=== PATIENT | female | born 1945 | race Caucasian/White ===

== ENCOUNTER 2018-08-04 05:51 | Inpatient (IN) | payer MEDICARE, SELFPAY ==
[2018-08-04] VITALS (12 sets, daily range): BP systolic 101–174; BP diastolic 59–91; PULSE 74–115; RESP 17–20; TEMP 36.8–39.5; O2SAT 91–96; BMI 36.6; BMI 37.0
--- NOTE | 2018-08-04 05:53 | CT_ITS ---
CT head/brain wo con HISTORY: Facial weakness, drooping, numbness, slurred speech ITS.REASON: cva facial drooping ORDERING PHYSICIAN: Sonido Puente MD PATIENT AGE: 73 years COMPARISON: None TECHNIQUE: Axial images obtained without contrast. Brain and bone windows reviewed. All CT scans at the facility use one or more dose reduction, viz: automated exposure control, ma/kV adjustment per patient size (including targeted exams where dose is matched to indication, i.e. head), or iterative reconstruction technique. FINDINGS: No midline shift, mass effect, intracranial hemorrhage, hydrocephalus, or extra-axial fluid collection is evident. Mild periventricular ischemic gliotic change. The calvarium has an unremarkable appearance. No mastoid effusion. No sinus air-fluid levels.. IMPRESSION: No acute intracranial findings.
--- NOTE | 2018-08-04 05:54 | XR_ITS ---
XR chest portable HISTORY: Weakness, facial drooping ITS.REASON: Stroke alert ORDERING PHYSICIAN: Sonido Puente MD PATIENT AGE: 73 years COMPARISON: None FINDINGS: The cardiomediastinal silhouette and pulmonary vascularity are within normal limits. There is increased density overlying the left lower lobe. While some of this may be due to soft tissue attenuation from the chest wall, underlying pneumonia is also a consideration. Upright PA and lateral chest may be of further value. The right lung is clear. No acute bony abnormalities. IMPRESSION: Possible left lower lobe pneumonia or effusion
--- NOTE | 2018-08-04 05:54 | PC.NURSE ---
Addendum entered by Tena Kaye, EMT 08/04/18 06:43: pt taken to ct at 0548 on ambulance stretcher Original Note: pt Taken straight to CT for stroke protocol
--- NOTE | 2018-08-04 06:30 | HMH.EDNEU ---
ED Disposition Clinical Impression: Elevated INR, Obesity (BMI 30-39.9) UTI (urinary tract infection) Qualifiers: Urinary tract infection type: site unspecified Hematuria presence: without hematuria Qualified Code(s): N39.0 - Urinary tract infection, site not specified Transient cerebral ischemia Qualifiers: Transient cerebral ischemia type: unspecified Qualified Code(s): G45.9 - Transient cerebral ischemic attack, unspecified CAP (community acquired pneumonia) Qualifiers: Laterality: left Lung location: lower lobe of lung Qualified Code(s): J18.1 - Lobar pneumonia, unspecified organism A-fib Qualifiers: Atrial fibrillation type: chronic Qualified Code(s): I48.2 - Chronic atrial fibrillation Disposition: Admitted as Observation Condition on Discharge: Fair Referrals: Provider,Referral, [Primary Care Provider] - - Critical Care Critical Care Time: No Attestation: On 08/04/18, the high probability of a clinically significant, sudden or life threatening deterioration of the following system(s) required my full and direct attention, intervention and personal management. The time I documented below is in addition to time spent performing reported procedures but includes the following listed in this critical care notation. Medical Decision Making - Medical Records Medical records reviewed: Yes: I reviewed the patient's medical records. - Karl Inquiry Pt receiving controlled substance: No Vital Signs: 08/04/18 06:10 08/04/18 06:36 08/04/18 06:58 Temperature 99.9 F H 102.2 F H Temperature Source Oral Rectal Pulse Rate [Right] 115 H 107 H 88 Respiratory Rate 20 20 20 Blood Pressure [Right Arm] 160/77 H 135/67 152/60 H Blood Pressure Mean [Right Arm] 104 89 90 Blood Pressure Source [Right Arm] Blood Pressure Position [Right Arm] 02 Sat by Pulse Oximetry 94 L 92 L Oxygen Delivery Method Room Air Room Air 08/04/18 07:20 08/04/18 08:00 Temperature Temperature Source Pulse Rate [Right] 97 H 88 Respiratory Rate Blood Pressure [Right Arm] 174/74 H 162/82 H Blood Pressure Mean [Right Arm] 107 108 Blood Pressure Source [Right Arm] Automatic Cuff Automatic Cuff Blood Pressure Position [Right Arm] Supine Supine 02 Sat by Pulse Oximetry 94 L 91 L Oxygen Delivery Method Room Air Room Air - Lab Data Lab results reviewed: Yes: I reviewed the patient's lab results. Lab Results 08/04/18 06:25: WBC 19.4 H, RBC 4.61, Hgb 14.0, Hct 43.4, MCV 94.3, MCH 30.3, MCHC 32.2, RDW 13.3, Plt Count 245, MPV 7.7, Neut % (Auto) 89.3 H, Lymph % (Auto) 4.5 L, [place] % (Auto) 5.6, Eos % (Auto) 0.3, Baso % (Auto) 0.3, Neut # (Auto) 17.3 H, Lymph # (Auto) 0.9, [place] # (Auto) 1.1 H, Eos # (Auto) 0.1, Baso # (Auto) 0.1, Total Counted 100, Neutrophils % (Manual) 76, Band Neutrophils % 5.0, Lymphocytes % (Manual) 6 L, Monocytes % (Manual) 9, Basophils % (Manual) 1.0, Metamyelocytes % 3.0 H, Platelet Estimate Normal, RBC Morphology Normal 08/04/18 06:25: PT 51.7 H, INR 5.39 H 08/04/18 06:25: Sodium 139, Potassium 3.7, Chloride 102, Carbon Dioxide 24, Anion Gap 16.7 H, BUN 18, Creatinine 1.14 H, Estimated Creat Clear 64, Estimated GFR 47 L, Est GFR ( Amer) 57 L, Glucose 121 H, Calcium 8.8, Troponin I < 0.02 08/04/18 06:25: Lactate 1.3 08/04/18 06:37: Urine Color Yellow, Urine Appearance Clear, Urine pH 6.0, Ur Specific [place] >= 1.030, Urine Protein 1+, Urine Glucose (UA) Negative, Urine Ketones 1+, Urine Blood 3+, Urine Nitrate Negative, Urine Bilirubin Negative, Urine Urobilinogen 0.2, Ur Leukocyte Esterase Negative, Urine RBC 3-5, Urine WBC 3-5, Ur Squamous Epith Cells Occasional, Urine Bacteria 1+, Fine Granular Casts Occasional, Urine Mucus Trace Result diagrams: 08/04/18 06:25 08/04/18 06:25 Orders (Tests/Meds): ED MEDICATIONS Generic Name Dose Route Start Last Admin Trade Name Freq PRN Reason Stop Dose Admin Sodium Chloride 1,000 mls @ 999 mls/hr 08/04/18 07:45 Sod Chlor 0.9% 1000ml Bag IV
[2018-08-04 06:39] LABS: Basophils # 0.1 K/mm3 (0-0.2); Basophils % 0.3 % (0.1-2.0); Eosinophils # 0.1 K/mm3 (0.0-0.4); Eosinophils % 0.3 % (0.1-12.0); Hematocrit 43.4 % (37.0-47.0); Lymphocytes # 0.9 K/mm3 (0.7-4.5); Lymphocytes % 4.5 % (10-50); Mean Corpuscular HGB Conc 32.2 g/dL (31.8-35.4); Mean Corpuscular Hemoglobin 30.3 pg (27.0-31.2); Mean Corpuscular Volume 94.3 fl (81-99); Mean Platelet Volume 7.7 fl (7.4-10.4); Monocytes # 1.1 K/mm3 (0.1-1.0); Monocytes % 5.6 % (1.7-9.3); Neutrophils # 17.3 K/mm3 (1.8-7.8); Neutrophils % 89.3 % (37.0-80.0); Platelet Count 245 K/mm3 (142-424); Red Blood Count 4.61 M/mm3 (4.20-5.40); Red Cell Distribution Width 13.3 % (11.5-17.5); White Blood Count 19.4 K/mm3 (4.8-10.8)
[2018-08-04 06:42] LABS: MANUAL DIFFERENTIAL MANUAL DIFFERENTIAL (MANUAL DIFF)
[2018-08-04 06:48] LABS: Microscopic, Urine URINE MICROSCOPIC (MICROSCOPIC)
[2018-08-04 06:49] LABS: INR 5.39 (0.9-1.1); Prothrombin Time 51.7 seconds (9.4-11.8)
[2018-08-04 06:50] LABS: Appearance,Urine CLEAR (Clear); Blood, Urine 3+ (Negative); Color,Urine YELLOW (Yellow); Glucose,Urine (UA) Negative (Negative); Ketones,Urine 1+ (Negative); Leukocyte Esterase,Urine Negative (Negative); Nitrate,Urine Negative (Negative); Protein,Urine 1+ (Negative); Specific Gravity, Urine >= 1.030 (1.005-1.030); Urobilinogen,Urine 0.2 EU/dl (0.2)
[2018-08-04 06:53] LABS: Lactic Acid 1.3 mmol/L (0.4-2.0)
[2018-08-04 06:58] LABS: Anion Gap 16.7 mEq/L (5-15); Blood Urea Nitrogen 18 mg/dL (7-18); Calcium 8.8 mg/dL (8.5-10.1); Carbon Dioxide 24 mmol/L (21.0-32.0); Chloride 102 mmol/L (98-107); Creatinine Clearance Estimated 64 mL/min (50-200); Creatinine,Serum 1.14 mg/dL (0.55-1.02); Estimated Glomerular Filt Rate 47 ml/min (>60); GFR (African American) 57 ML/MIN (>60); Glucose 121 mg/dL (74-106); Potassium 3.7 mmoL/L (3.5-5.1); Sodium 139 mmol/L (136-145); Troponin I < 0.02 ng/ml (0.00-0.06)
[2018-08-04 07:11] LABS: Bilirubin,Urine Negative (Negative)
[2018-08-04 07:12] LABS: Fine Granular Casts,Urine Occasional #/lpf (0); Squamous Epithelial Cell,Urine Occasional #/hpf (0-5)
[2018-08-04 07:13] LABS: Bacteria,Urine 1+ /lpf; Mucus,Urine Trace /lpf
[2018-08-04 07:22] LABS: Lymphocytes % 6 % (10-50); Monocytes % 9 % (2-9); Neutrophils % 76 % (42-76); Platelet Estimate Normal; RBC Morphology Normal; Total Cells Counted 100
--- NOTE | 2018-08-04 08:30 | PC.NURSE ---
case management called for admission
--- NOTE | 2018-08-04 08:39 | PC.NURSE ---
Dr. Puente at bedside
--- NOTE | 2018-08-04 09:10 | HMH.PHAVTE ---
[facility] Pharmacy VTE Monitoring - Patient Demographics Admission date: 08/04/18 Report Date: 08/04/18 Time: 09:10 Allergies/Adverse Reactions: Patient Allergies PCN (PENICILLIN) Allergy (Intermediate, Uncoded 02/17/17 14:03) I-HIVES SULFA (SULFONAMIDE) Allergy (Intermediate, Uncoded 02/17/17 14:03) I-RASH Height: 1.57 m Weight: 90.718 kg Patient Problems: Current Active Problems (Updated 08/04/18 @ 08:34 by Sonido Puente MD) UTI (urinary tract infection) (Acute) Transient cerebral ischemia (Acute) CAP (community acquired pneumonia) (Acute) A-fib (Acute) Elevated INR (Acute) Obesity (BMI 30-39.9) (Acute) - VTE Risk Labs: VTE Related Lab Results Hgb 14.0 g/dL (12.2-16.2) 08/04/18 06:25 Hct 43.4 % (37.0-47.0) 08/04/18 06:25 Plt Count 245 K/mm3 (142-424) 08/04/18 06:25 PT 51.7 seconds (9.4-11.8) H 08/04/18 06:25 INR 5.39 (0.9-1.1) H 08/04/18 06:25 BUN 18 mg/dL (7-18) 08/04/18 06:25 Creatinine 1.14 mg/dL (0.55-1.02) H 08/04/18 06:25 Estimated Creat Clear 64 mL/min (50-200) 08/04/18 06:25 - Prophylaxis VTE Prophylaxis Ordered?: Yes Types of VTE Prophylaxis: Pharmacological Pharmacologic Type: Warfarin - VTE Diagnosis Confirmed Treatment or plan recommended: Continue Current Treatment
--- NOTE | 2018-08-04 10:03 | XR_ITS ---
XR chest w decubitus HISTORY: ITS.REASON: pneumonia vs. effusion left lung ORDERING PHYSICIAN: Saroj Napier MD PATIENT AGE: 73 years COMPARISON: 08/04/2018 FINDINGS: PA and lateral views of the chest are performed along with left lateral decubitus exams. The lateral decubitus exam showed no evidence of layering effusion. There is persistent increased density within the superior segment left lower lobe consistent with left-sided pneumonia. There is mild cardiomegaly without failure. The right lung is clear. No acute bony anomalies. IMPRESSION: Pneumonia within the superior segment of the left lower lobe area no layering effusion evident
--- NOTE | 2018-08-04 10:04 | HMH.HP ---
*Admission Date: 08/04/18 *Chief complaint: Weakness *History of present illness: 73-year-old female with 48 hours of onset and progression of diffuse weakness culminating this morning and feeling so weak she was unable to bear weight and/or get out of bed which resulted in a call to EMS. Patient was transported to the emergency department and underwent a stroke work-up. Patient did not have any focal neurologic symptoms but just a generalized complaint of weakness which she has attributed to a urinary tract infection despite the lack of urinary symptoms. During evaluation in the emergency department patient had a fever of 102.2. She confirms that over the last 48 hours she has had subjective fevers and chills. Work-up also revealed an abnormal portable chest x-ray with a reading of a left lower lobe infiltrate versus an effusion. Patient also denies any respiratory symptoms of cough, sputum production, shortness of breath, wheezing, orthopnea. White blood cell count was elevated and decision was made to admit the patient for treatment of UTI and pneumonia while awaiting cultures. Of note patient was in my office and saw 1 of the nurse practitioners on August 02 with the same complaint of weakness which she attributed to a UTI due to past history. At that time patient was found to be tachycardic with heart rate in the 120s. She has known atrial fibrillation. Patient was placed on oral Cardizem at that visit. She was scheduled for follow-up today. At that office visit the patient also lacked classical symptoms of urinary tract infection patient was placed on Macrobid which she was unable to take due to profound nausea and occasional vomiting. [facility] History I have reviewed the patient's past medical history: Yes Medical History: Reports:: Atrial Fibrillation, Hypertension, Valvular Heart Disease Denies:: Cancer, Diabetes Mellitus Type 1, Diabetes Mellitus Type 2, Internal Pacemaker *Have you ever received a pneumonia vaccine?: Yes *Have you received a flu vaccine this season?: Yes Laterality Cases: Bilateral: Tonsillectomy Other Surgeries: No: Pacemaker Amputation: No Fractures: No - *Social History Educational Level: Completed College Alcohol Intake: never *Occupational Status:: retired Housing: house Household Members: spouse *Travel in the last 8 weeks: None - Psychiatric History Expresses thoughts of harming self/others: None Suicide Plan Description: No Plan Family Hx:: Cancer, Coronary Artery Disease, Heart Attack, Hypertension Review of Systems - Review of Systems Review of systems:: pertinent systems reviewed and negative unless documented below - Constitutional Reports anorexia, Reports chills, Reports fatigue, Reports fever(s), Reports lack of energy, Reports malaise, Reports weakness, Denies body ache(s), Denies daytime sleepiness, Denies excessive sweating, Denies increased appetite, Denies night sweats, Denies weight gain, Denies weight loss - Eyes Denies blurry vision - *Cardiovascular Denies chest pain, Denies chest pain at rest, Denies chest pain with activity, Denies leg pain with activity, Denies excessive sweating, Denies shortness of breath, Denies shortness of breath with activity, Denies generalized swelling - *Respiratory Denies change in phlegm color, Denies chest congestion, Denies cough, Denies shortness of breath - *Gastrointestinal Denies abdominal pain, Denies belching - *Genitourinary Denies difficulty urinating, Denies painful urination, Denies side pain, Denies blood in urine - *Neurologic Reports weakness, Denies abnormal hearing, Denies abnormal movements, Denies abnormal speech, Denies behavioral changes, Denies burning sensations, Denies confusion, Denies dizziness, Denies localized weakness, Denies headache(s), Denies tingling/numbness/burning sensations Meds Home Medications Medication Instructions Recorded Confirmed Type Amlodipine Besylate/Benazepril 1 each PO DAILY 08/04/1808/04
--- NOTE | 2018-08-04 10:07 | P.HP_ITS ---
*Admission Date: 08/04/18 *Chief complaint: Weakness *History of present illness: 73-year-old female with 48 hours of onset and progression of diffuse weakness culminating this morning and feeling so weak she was unable to bear weight and/or get out of bed which resulted in a call to EMS. Patient was transported to the emergency department and underwent a stroke work-up. Patient did not have any focal neurologic symptoms but just a generalized complaint of weakness which she has attributed to a urinary tract infection despite the lack of urinary symptoms. During evaluation in the emergency department patient had a fever of 102.2. She confirms that over the last 48 hours she has had subjective fevers and chills. Work-up also revealed an abnormal portable chest x-ray with a reading of a left lower lobe infiltrate versus an effusion. Patient also denies any respiratory symptoms of cough, sputum production, shortness of breath, wheezing, orthopnea. White blood cell count was elevated and decision was made to admit the patient for treatment of UTI and pneumonia while awaiting cultures. Of note patient was in my office and saw 1 of the nurse practitioners on August 02 with the same complaint of weakness which she attributed to a UTI due to past history. At that time patient was found to be tachycardic with heart rate in the 120s. She has known atrial fibrillation. Patient was placed on oral Cardizem at that visit. She was scheduled for follow-up today. At that office visit the patient also lacked classical symptoms of urinary tract infection patient was placed on Macrobid which she was unable to take due to profound nausea and occasional vomiting. [facility] History I have reviewed the patient's past medical history: Yes Medical History: Reports:: Atrial Fibrillation, Hypertension, Valvular Heart Disease Denies:: Cancer, Diabetes Mellitus Type 1, Diabetes Mellitus Type 2, Internal Pacemaker *Have you ever received a pneumonia vaccine?: Yes *Have you received a flu vaccine this season?: Yes Laterality Cases: Bilateral: Tonsillectomy Other Surgeries: No: Pacemaker Amputation: No Fractures: No - *Social History Educational Level: Completed College Alcohol Intake: never *Occupational Status:: retired Housing: house Household Members: spouse *Travel in the last 8 weeks: None - Psychiatric History Expresses thoughts of harming self/others: None Suicide Plan Description: No Plan Family Hx:: Cancer, Coronary Artery Disease, Heart Attack, Hypertension Review of Systems - Review of Systems Review of systems:: pertinent systems reviewed and negative unless documented below - Constitutional Reports anorexia, Reports chills, Reports fatigue, Reports fever(s), Reports lack of energy, Reports malaise, Reports weakness, Denies body ache(s), Denies daytime sleepiness, Denies excessive sweating, Denies increased appetite, Denies night sweats, Denies weight gain, Denies weight loss - Eyes Denies blurry vision - *Cardiovascular Denies chest pain, Denies chest pain at rest, Denies chest pain with activity, Denies leg pain with activity, Denies excessive sweating, Denies shortness of breath, Denies shortness of breath with activity, Denies generalized swelling - *Respiratory Denies change in phlegm color, Denies chest congestion, Denies cough, Denies shortness of breath - *Gastrointestinal Denies abdominal pain, Denies belching - *Genitourinary Denies difficulty urinating, Denies painful urination, Denies side pain, Denies blood in urine - *Neurologic Reports weakness, Denies abnormal hearing, Denies abnormal movements, Denies abnorma
--- NOTE | 2018-08-04 17:37 | PC.NURSE ---
Pt called out to use restroom. Upon entering room and sat pt up on side of the bed, pt became anxious with slurred speech. Pt threw herself back in bed. Finger stick performed and blood sugar 89. Pt has equal strength bilaterally in all exremities with normal sensation. No facial droop noted. Pt able to track and see peripherally bilaterally. Oral temp 103.1, Rectal temp 102.8. Pt given tylenol 650mg for fever. Pt with no difficulty swallowing. Ice packs placed behind neck and in bilat armpits. Dr Puente notified of the above via telephone. No new orders received.
[2018-08-04 17:43] LABS: POC Glucose,Bedside 89 (70-110)
--- NOTE | 2018-08-04 19:15 | PC.NURSE ---
report given to hernan
--- NOTE | 2018-08-04 21:42 | PC.NURSE ---
PT TRIGGERED SEVERE SEPSIS, PT INR ELEVATED SECONDARY TO COUMADIN THERAPY.
[2018-08-05] VITALS (7 sets, daily range): BP systolic 131–154; BP diastolic 60–86; PULSE 89–105; RESP 18–20; TEMP 36.8–37.4; O2SAT 92–94; BMI 37.5
--- NOTE | 2018-08-05 05:03 | PC.NURSE ---
PT AWAKE MOST OF NIGHT. HAVING URINARY INCONTINENCE ISSUE. NO COUGH NOTED. UNABLE TO OBTAIN SPUTUM SPECIMEN. NO COMPLAINTS OF SOB.
--- NOTE | 2018-08-05 07:05 | HMH.ACPN2 ---
Internal Medicine - PN: Subj *Date: 08/05/18 *Time: 07:05 Interval history: Patient has no new complaints this morning. She did not sleep well. Her son later tells me he believes the reason for poor quality sleep was the patient spent most of the night worrying about her who is suffering from Alzheimer's and has a lot of confusion at home. Her son was caring for her at home while she was here in the hospital. Her last documented fever was yesterday evening. She does have mild cough now but continues to deny shortness of breath. Exam Vital signs and Labs for Last 24 Hours: Temp Pulse Resp BP Pulse Ox 98.9 F 105 H 18 139/70 92 L 08/05/18 04:00 08/05/18 04:00 08/05/18 04:00 08/05/18 04:00 08/05/18 04:00 Laboratory Results - last 24 hr 08/04/18 06:25: Total Counted 100, Neutrophils % (Manual) 76, Band Neutrophils % 5.0, Lymphocytes % (Manual) 6 L, Monocytes % (Manual) 9, Basophils % (Manual) 1.0, Metamyelocytes % 3.0 H, Platelet Estimate Normal, RBC Morphology Normal 08/04/18 06:37: Urine Color Yellow, Urine Appearance Clear, Urine pH 6.0, Ur Specific [employer] >= 1.030, Urine Protein 1+, Urine Glucose (UA) Negative, Urine Ketones 1+, Urine Blood 3+, Urine Nitrate Negative, Urine Bilirubin Negative, Urine Urobilinogen 0.2, Ur Leukocyte Esterase Negative, Urine RBC 3-5, Urine WBC 3-5, Ur Squamous Epith Cells Occasional, Urine Bacteria 1+, Fine Granular Casts Occasional, Urine Mucus Trace 08/04/18 17:19: POC Glucose 89 I & O for Last 24 hours: Intake & Output 08/02/18 08/03/18 08/04/18 08/05/18 11:59 11:59 11:59 11:59 Intake Total 2600 / 2600 Output Total 100 / 100 350 / 350 Balance -100 / -100 2250 / 2250 Weight 202 lb 5 oz 205 lb Narrative: Patient is supine in bed and exhibits mild increase in respiratory rate. She is warm to the touch. Heart has an irregularly irregular rate and rhythm. Lungs have good aeration anteriorly with rales heard in the left lower lung. Extremities are warm to the touch Assessment and Plan (1) CAP (community acquired pneumonia) Current visit: Yes Status: Acute Qualifiers: Laterality: left Lung location: lower lobe of lung Qualified Code(s): J18.1 - Lobar pneumonia, unspecified organism Category: Medical Code(s): J18.9 - Pneumonia, unspecified organism (2) UTI (urinary tract infection) Current visit: Yes Status: Acute Qualifiers: Urinary tract infection type: site unspecified Hematuria presence: without hematuria Qualified Code(s): N39.0 - Urinary tract infection, site not specified Category: Medical Code(s): N39.0 - Urinary tract infection, site not specified (3) A-fib Current visit: Yes Status: Acute Qualifiers: Atrial fibrillation type: chronic Qualified Code(s): I48.2 - Chronic atrial fibrillation Category: Medical Code(s): I48.91 - Unspecified atrial fibrillation (4) Elevated INR Current visit: Yes Status: Acute Category: Medical Code(s): R79.1 - Abnormal coagulation profile (5) Obesity (BMI 30-39.9) Current visit: Yes Status: Acute Category: Medical Code(s): E66.9 - Obesity, unspecified - Assessment and plan all Dx Assessment and Plan for all problems:: 1. Continue Rocephin and azithromycin for treatment of community-acquired pneumonia 2. Await CBC this morning
[2018-08-05 07:09] LABS: Basophils % 0.1 % (0.1-2.0); Hematocrit 38.3 % (37.0-47.0); Hemoglobin 12.7 g/dL (12.2-16.2); Lymphocytes # 0.9 K/mm3 (0.7-4.5); Lymphocytes % 5.7 % (10-50); Mean Corpuscular HGB Conc 33.3 g/dL (31.8-35.4); Mean Corpuscular Hemoglobin 29.4 pg (27.0-31.2); Mean Corpuscular Volume 88.3 fl (81-99); Mean Platelet Volume 8.4 fl (7.4-10.4); Monocytes # 1.2 K/mm3 (0.1-1.0); Neutrophils # 13.4 K/mm3 (1.8-7.8); Neutrophils % 86.2 % (37.0-80.0); Platelet Count 217 K/mm3 (142-424); Red Blood Count 4.34 M/mm3 (4.20-5.40); Red Cell Distribution Width 13.1 % (11.5-17.5); White Blood Count 15.6 K/mm3 (4.8-10.8)
[2018-08-05 07:11] LABS: MANUAL DIFFERENTIAL MANUAL DIFFERENTIAL (MANUAL DIFF)
[2018-08-05 07:31] LABS: Prothrombin Time 44.2 seconds (9.4-11.8)
[2018-08-05 07:40] LABS: INR 4.57 (0.9-1.1)
[2018-08-05 07:41] LABS: Anion Gap 14.9 mEq/L (5-15); Blood Urea Nitrogen 14 mg/dL (7-18); Carbon Dioxide 23 mmol/L (21.0-32.0); Chloride 109 mmol/L (98-107); Creatinine Clearance Estimated 75 mL/min (50-200); Creatinine,Serum 0.83 mg/dL (0.55-1.02); Estimated Glomerular Filt Rate 68 ml/min (>60); GFR (African American) 82 ML/MIN (>60); Glucose 102 mg/dL (74-106); Potassium 3.9 mmoL/L (3.5-5.1); Sodium 143 mmol/L (136-145)
[2018-08-05 07:54] LABS: Calcium 7.9 mg/dL (8.5-10.1)
[2018-08-05 12:28] LABS: Lymphocytes % 5 % (10-50); Monocytes % 7 % (2-9); Neutrophils % 86 % (42-76); Platelet Estimate Normal; RBC Morphology Normal; Total Cells Counted 100
--- NOTE | 2018-08-05 20:44 | PC.NURSE ---
PT TRIGGERED SEVERE SEPSIS SECONDARY TO ELEVATED INR, PT ON COUMADIN THERAPY.
[2018-08-06 04:00] VITALS: BP 135/65; PULSE 94; RESP 16; TEMP 36.5; O2SAT 94
--- NOTE | 2018-08-06 04:28 | PC.NURSE ---
PT SLEPT TIL AROUND 0130. UP TO BATHROOM WITH ONE ASSIST. REQUESTED SLEEP AID-BENADRYL 25MG PO GIVEN PER ORDER. PT VOIDING WITHOUT DIFFICULTY. PT STATES SHE IS NOT EATING WELL. CONTINUES ON 2L PER NC. UNABLE TO OBTAIN SPUTUM-REPORTED TO RESPIRATORY.
[2018-08-06 05:17] VITALS: BMI 37.0
--- NOTE | 2018-08-06 07:00 | CA_ITS ---
PROCEDURE: 2-D M-mode and color Doppler study INDICATIONS FOR THE TEST: Chest pain COPD Heart Murmur Tobacco Smoking Palpitations Fatigue Syncope Edema HypertensionXDiabetes Mellitus Rheumatic Fever SOBXDOEXObesityXHyperlipidemia Family History HD Additional History CHRONIC AF,UTI,WEAKNESS PATIENT INFORMATION HEIGHT: 62 WEIGHT:205 GENDER: Female B/P:110/70 2-D/M-MODE INTERPRETATION: 2-D MEASUREMENTS OBSERVED VALUES IN CMS Right Ventricular Dimension (RVDd) 1.9 Interventricular Septum (Thickness)(IVsd) 1.2 Left Ventricular Internal Dimensions(LVIDd) 4.7 Left Ventricular Posterior Wall (Thickness)(LVPWd) 1.0 Aortic Root 3.3 Aortic Cusp Separation 1.7 Left Atrial Dimensions (LAD) 3.7 2D 1. Left atrium is moderately enlarged, left ventricle is normal size, mild concentric left ventricular hypertrophy, visually estimated ejection fraction of 55% with no regional wall motion abnormality. 2. The right atrium is moderately enlarged, right ventricle is normal size and contractility. 3. The aortic valve is minimally thickened and fibrosed. 4. The mitral and tricuspid valve leaflets are minimally thickened. 5. The pulmonic valve is poorly visualized. 6. No significant pericardial effusion noted. DOPPLER INTERROGATION: Doppler interrogation of the aortic, mitral and tricuspid valvular presence of mild mitral and tricuspid regurgitation, calculated right ventricular systolic pressure 58 mmHg represents moderate pulmonary hypertension, inferior vena cava is normal size with normal inspiratory collapse. Diastolic parameters are inconclusive. CONCLUSION: 1. Moderate biatrial enlargement, normal left ventricular size, mild concentric left ventricular hypertrophy, visually estimated ejection fraction 55% with no regional wall motion abnormality, diastolic parameters are inconclusive. 2. Mild mitral and tricuspid regurgitation, calculated right ventricular systolic pressure is 58 mmHg that represents moderate pulmonary hypertension. Inferior vena cava is normal size with normal inspiratory collapse. 3. No significant pericardial effusion noted.
[2018-08-06 07:14] LABS: Anion Gap 14.1 mEq/L (5-15); Basophils % 0.1 % (0.1-2.0); Blood Urea Nitrogen 12 mg/dL (7-18); Calcium 8.3 mg/dL (8.5-10.1); Carbon Dioxide 27 mmol/L (21.0-32.0); Chloride 106 mmol/L (98-107); Creatinine Clearance Estimated 74 mL/min (50-200); Creatinine,Serum 0.89 mg/dL (0.55-1.02); Eosinophils # 0.1 K/mm3 (0.0-0.4); Eosinophils % 0.4 % (0.1-12.0); Estimated Glomerular Filt Rate 62 ml/min (>60); GFR (African American) 75 ML/MIN (>60); Glucose 97 mg/dL (74-106); Hematocrit 36.5 % (37.0-47.0); Lymphocytes # 1.3 K/mm3 (0.7-4.5); Lymphocytes % 9.4 % (10-50); Mean Corpuscular HGB Conc 32.8 g/dL (31.8-35.4); Mean Corpuscular Hemoglobin 28.7 pg (27.0-31.2); Mean Corpuscular Volume 87.4 fl (81-99); Mean Platelet Volume 8.1 fl (7.4-10.4); Monocytes # 1.1 K/mm3 (0.1-1.0); Monocytes % 8.3 % (1.7-9.3); Neutrophils % 81.9 % (37.0-80.0); Platelet Count 230 K/mm3 (142-424); Potassium 3.1 mmoL/L (3.5-5.1); Red Blood Count 4.18 M/mm3 (4.20-5.40); Red Cell Distribution Width 13.1 % (11.5-17.5); Sodium 144 mmol/L (136-145); White Blood Count 13.4 K/mm3 (4.8-10.8)
--- NOTE | 2018-08-06 07:22 | HMH.ACPN2 ---
Internal Medicine - PN: Subj *Date: 08/06/18 *Time: 07:22 Interval history: Patient has no complaints this morning. She just completed an echocardiogram. Yesterday afternoon around 4 PM patient was acting oddly per nursing staff and was found to be hypoxic with an O2 sat of 83% on room air. Oxygen at a rate of 2 L/min was applied via nasal cannula. Patient however continues to deny shortness of breath. Movement has been minimal since hospitalization and while the patient was encouraged to ambulate short distances and sit in the chair yesterday she did not do that until yesterday evening. Exam Vital signs and Labs for Last 24 Hours: Temp Pulse Resp BP Pulse Ox 97.7 F 94 H 16 135/65 94 L 08/06/18 04:00 08/06/18 04:00 08/06/18 04:00 08/06/18 04:00 08/06/18 04:00 Laboratory Results - last 24 hr 08/05/18 06:27: Total Counted 100, Neutrophils % (Manual) 86 H, Band Neutrophils % 2.0, Lymphocytes % (Manual) 5 L, Monocytes % (Manual) 7, Platelet Estimate Normal, RBC Morphology Normal 08/05/18 06:27: PT 44.2 H, INR 4.57 H 08/05/18 06:27: Sodium 143, Potassium 3.9, Chloride 109 H, Carbon Dioxide 23, Anion Gap 14.9, BUN 14, Creatinine 0.83 D, Estimated Creat Clear 75, Estimated GFR 68, Est GFR ( Amer) 82 D, Glucose 102, Calcium 7.9 L D 08/06/18 06:15: WBC 13.4 H, RBC 4.18 L, Hgb 12.0 L, Hct 36.5 L, MCV 87.4, MCH 28.7, MCHC 32.8, RDW 13.1, Plt Count 230, MPV 8.1, Neut % (Auto) 81.9 H, Lymph % (Auto) 9.4 L, [place] % (Auto) 8.3, Eos % (Auto) 0.4, Baso % (Auto) 0.1, Neut # (Auto) 11.0 H, Lymph # (Auto) 1.3, [place] # (Auto) 1.1 H, Eos # (Auto) 0.1, Baso # (Auto) 0.0 08/06/18 06:15: Sodium 144, Potassium 3.1 L D, Chloride 106, Carbon Dioxide 27, Anion Gap 14.1, BUN 12, Creatinine 0.89, Estimated Creat Clear 74, Estimated GFR 62, Est GFR ( Amer) 75, Glucose 97, Calcium 8.3 L I & O for Last 24 hours: Intake & Output 08/03/18 08/04/18 08/05/18 08/06/18 11:59 11:59 11:59 11:59 Intake Total 360 / 360 2600 / 2600 2966 / 2966 Output Total 100 / 100 350 / 350 200 / 200 Balance 260 / 260 2250 / 2250 2766 / 2766 Weight 202 lb 5 oz 205 lb 202 lb 4 oz Microbiology Reports for the Last 24 Hours: Microbiology 08/04/18 06:25 Blood Blood Culture - Preliminary NO GROWTH AFTER 48 HOURS 08/04/18 06:25 Blood Blood Culture - Preliminary NO GROWTH AFTER 48 HOURS 08/04/18 06:38 Urine,Catheterized Urine Culture - Preliminary NO GROWTH AFTER 24 HOURS Narrative: Patient is laying flat in bed. She seems more lucid today than yesterday despite claiming that she recalls all the events of yesterday. Heart has a regular rate and rhythm. Lung exam reveals diminished breath sounds on the left but rales are less audible in the base. Assessment and Plan (1) CAP (community acquired pneumonia) Current visit: Yes Status: Acute Qualifiers: Laterality: left Lung location: lower lobe of lung Qualified Code(s): J18.1 - Lobar pneumonia, unspecified organism Category: Medical Code(s): J18.9 - Pneumonia, unspecified organism (2) UTI (urinary tract infection) Current visit: Yes Status: Acute Qualifiers: Urinary tract infection type: site unspecified Hematuria presence: without hematuria Qualified Code(s): N39.0 - Urinary tract infection, site not specified Category: Medical Code(s): N39.0 - Urinary tract infection, site not specified (3) A-fib Current visit: Yes Status: Acute Qualifiers: Atrial fibrillation type: chronic Qualified Code(s): I48.2 - Chronic atrial fibrillation Category: Medical Code(s): I48.91 - Unspecified atrial fibrillation (4) Elevated INR Current visit: Yes Status: Acute Category: Medical Code(s): R79.1 - Abnormal coagulation profile (5) Obesity (BMI 30-39.9) Current visit: Yes Status: Acute Category: Medical Code(s): E66.9 - Obesity, unspecified
--- NOTE | 2018-08-06 07:26 | P.PN_ITS ---
Internal Medicine - PN: Subj *Date: 08/06/18 *Time: 07:22 Interval history: Patient has no complaints this morning. She just completed an echocardiogram. Yesterday afternoon around 4 PM patient was acting oddly per nursing staff and was found to be hypoxic with an O2 sat of 83% on room air. Oxygen at a rate of 2 L/min was applied via nasal cannula. Patient however continues to deny shortness of breath. Movement has been minimal since hospitalization and while the patient was encouraged to ambulate short distances and sit in the chair yesterday she did not do that until yesterday evening. Exam Vital signs and Labs for Last 24 Hours: Temp Pulse Resp BP Pulse Ox 97.7 F 94 H 16 135/65 94 L 08/06/18 04:00 08/06/18 04:00 08/06/18 04:00 08/06/18 04:00 08/06/18 04:00 Laboratory Results - last 24 hr 08/05/18 06:27: Total Counted 100, Neutrophils % (Manual) 86 H, Band Neutrophils % 2.0, Lymphocytes % (Manual) 5 L, Monocytes % (Manual) 7, Platelet Estimate Normal, RBC Morphology Normal 08/05/18 06:27: PT 44.2 H, INR 4.57 H 08/05/18 06:27: Sodium 143, Potassium 3.9, Chloride 109 H, Carbon Dioxide 23, Anion Gap 14.9, BUN 14, Creatinine 0.83 D, Estimated Creat Clear 75, Estimated GFR 68, Est GFR ( Amer) 82 D, Glucose 102, Calcium 7.9 L D 08/06/18 06:15: WBC 13.4 H, RBC 4.18 L, Hgb 12.0 L, Hct 36.5 L, MCV 87.4, MCH 28.7, MCHC 32.8, RDW 13.1, Plt Count 230, MPV 8.1, Neut % (Auto) 81.9 H, Lymph % (Auto) 9.4 L, [place] % (Auto) 8.3, Eos % (Auto) 0.4, Baso % (Auto) 0.1, Neut # (Auto) 11.0 H, Lymph # (Auto) 1.3, [place] # (Auto) 1.1 H, Eos # (Auto) 0.1, Baso # (Auto) 0.0 08/06/18 06:15: Sodium 144, Potassium 3.1 L D, Chloride 106, Carbon Dioxide 27, Anion Gap 14.1, BUN 12, Creatinine 0.89, Estimated Creat Clear 74, Estimated GFR 62, Est GFR ( Amer) 75, Glucose 97, Calcium 8.3 L I & O for Last 24 hours: Intake & Output 08/03/18 08/04/18 08/05/18 08/06/18 11:59 11:59 11:59 11:59 Intake Total 360 / 360 2600 / 2600 2966 / 2966 Output Total 100 / 100 350 / 350 200 / 200 Balance 260 / 260 2250 / 2250 2766 / 2766 Weight 202 lb 5 oz 205 lb 202 lb 4 oz Microbiology Reports for the Last 24 Hours: Microbiology 08/04/18 06:25 Blood Blood Culture - Preliminary NO GROWTH AFTER 48 HOURS 08/04/18 06:25 Blood Blood Culture - Preliminary NO GROWTH AFTER 48 HOURS 08/04/18 06:38 Urine,Catheterized Urine Culture - Preliminary NO GROWTH AFTER 24 HOURS Narrative: Patient is laying flat in bed. She seems more lucid today than yesterday despite claiming that she recalls all the events of yesterday. Heart has a regular rate and rhythm. Lung exam reveals diminished breath sounds on the left but rales are less audible in the base. Assessment and Plan (1) CAP (community acquired pneumonia) Current visit: Yes Status: Acute Qualifiers: Laterality: left Lung location: lower lobe of lung Qualified Code(s): J18.1 - Lobar pneumonia, unspecified organism Category: Medical Code(s): J18.9 - Pneumonia, unspecified organism (2) UTI (urinary tract infection) Current visit: Yes Status: Acute Qualifiers: Urinary tract infection type: site unspecified Hematuria presence: without hematuria Qualified Code(s): N39.0 - Urinary tract infection, site not specified Category: Medical Code(s): N39.0 - Urinary tract inf
[2018-08-06 08:00] VITALS: BP 135/78; PULSE 111; RESP 18; TEMP 37.4; O2SAT 95
--- NOTE | 2018-08-06 12:25 | HMH.PTEV ---
Physical Therapy Evaluation Rehab PT IP Evaluation Start: 08/05/18 16:14 Freq: .once Status: Active Protocol: Document 08/06/18 11:20 PHORNE (Rec: 08/06/18 12:25 PHORNE [id number]) Subjective/History History History 73 yowf adm to [facility] with weakness and CAP. Subjective Subjective Pt currently reports feeling better and wants to increase mobility. Rehab PT IP Eval Objective Appearance Patient Behavior Appropriate Patient Orientation Person,Place,Time Difficulty following instructions none Speech Pattern Clear Ambulation Patient Able to Ambulate Yes Ambulation Observation IP General Gait Pattern Observation Wide Based Gait Ambulation Distance (feet) 50 Ambulation Assistive Device Rolling Walker Balance Ability to Arise Able, uses arms to help Sitting Balance Steady, safe Standing Balance Steady, wide stance Dynamic Sitting Balance Ability Good Dynamic Standing Balance Ability Good Transfers Bed Transfer Ability Supervision/Stand by Chair Transfer Ability Contact Guard/Hand Hold Sit to Stand Bed Transfer Ability Contact Guard/Hand Hold Sit to Stand Chair Transfer Ability Contact Guard/Hand Hold ROM All Extremities PT ROM Status WFL MMT All Extremities PT MMT WFL Rehab PT IP prob,goals,plan Problems Date of Evaluation: 08/06/18 PT IP Problems Bed Mobility,Transfers,Gait Rehab Potential Rehab Potential Good Plan PT Intervention Plan Bed Mobility,Transfers,Gait, Therapeutic Exercise PT Plan Frequency BID Duration LOS Discharge Goals Bed Transfer Ability Supervision/Stand by Sit to Stand Chair Transfer Ability Supervision/Stand by Ambulation Assistive Device Straight Cane Ambulation Distance (feet) 75 Discharge Plan PT Discharge Plan Pt is appropriate to return home once medically stable, will need to increase endurance as tolerated. G -code Required Yes Eval Complexity Eval Charge Codes 42473 - Moderate Complexity G Codes PT Current Status Mobility PT Current Status Modifier CJ-At least 20% but less than 40% impaired, limited or restricted PT Goal Status Mobility PT Goal Status Modifer CJ-At least 20% but less than 40% impaired, limited or re
--- NOTE | 2018-08-06 13:35 | PC.NURSE ---
report given to kiran
--- NOTE | 2018-08-06 15:10 | SW/DCPLANNER ---
RECEIVED REFERRAL FOR HOME HEALTH FOR THIS PATIENT....PATIENT IS DISCHARGING HOME [facility] AND WISHES TO USE [facility].. I HAVE SENT REFERRAL AND MADE CONTACT WITH BETSY TO LET ME KNOW ONCE PATIENT IS SET UP... PATIENT MAY ALSO NEED HOME 02...WILL MONITOR HER SATS AND IF SHE DROPS TO WHERE SHE NEEDS OXYGEN, IT WILL BE SET UP PRIOR TO DISCHARGE...
--- NOTE | 2018-08-06 15:22 | PC.NURSE ---
CHECKED PATIENT'S OXYGEN AT 1000 IT WAS 91% ON 2L, REMOVED OXYGEN FOR 30 MINUTES AND IT DROOPED TO 84%, REAPPLIED 2L OF 02. CHECKED AGAIN AT 1430 IT WAS 95% ON 2L, REMOVED OXYGEN FOR 30 MINUTES AND IT DROPPED TO 87%, REAPPLIED 2L OF 02.
[2018-08-06 16:00] VITALS: BP 161/73; PULSE 102; RESP 18; TEMP 37.6; O2SAT 94
--- NOTE | 2018-08-06 16:32 | PC.NURSE ---
ice and trash done, pt up in chair awake
--- NOTE | 2018-08-06 18:14 | PC.NURSE ---
PATIENT HAS BEEN OUT OF BED TODAY, SITTING UP IN CHAIR, AMBULATING IN ROOM WITH USE OF ROLLING WALKER. 02 STATS REMAIN LOW, CHECKED TWICE TODAY WITHOUT 02 FOR 30 MINUTES EACH TIME AND SHE DROPPED INTO THE 80'S. SHE IS SALINE LOCKED . PATIENT RESTING IN BED AT THIS TIME. VSS, CALL TARIQ IN REACH, BED IN LOWEST POSITION, NO DISTRESS NOTED, DENIES ANY NEEDS. WILL CONTINUE TO MONITOR. PLANS ARE FOR PATIENT TO BE DISCHARGED TOMORROW. DISCHARGE INFORMATION AT IT [facility] FOR HOME OXYGEN AND HOME HEALTH, WILL PASS ON TO ONCOMING NURSE AT SHIFT CHANGE.
[2018-08-06 19:42] VITALS: BP 172/90; PULSE 103; RESP 18; TEMP 37.5; O2SAT 87
[2018-08-07 04:00] VITALS: BP 160/88; PULSE 87; RESP 30; TEMP 36.8; O2SAT 89
--- NOTE | 2018-08-07 04:11 | PC.NURSE ---
A&OX4. INTERMITTENT NONPRODUCTIVE COUGH NOTED WITH COURSE CRACKLES T/O BILAT LUNGS. AT BEGINNING OF SHIFT PT. RA 87%; O2 SAT 89% ON 1.5L NC; O2 SAT 90% ON 2L NC. PT. HAS NOT C/O SOB, PAIN, DIZZINESS, N/V/D. IV PATENT WHEN FLUSHED SHOWING NO S/S OF INFILTRATION. PT. CURRENTLY RESTING IN BED WITH EYES CLOSED AT THIS TIME. VSS. WILL CONTINUE TO MONITOR.
[2018-08-07 05:16] VITALS: BMI 36.8
[2018-08-07 07:10] LABS: Basophils % 0.2 % (0.1-2.0); Eosinophils # 0.1 K/mm3 (0.0-0.4); Eosinophils % 0.4 % (0.1-12.0); Hematocrit 36.3 % (37.0-47.0); Hemoglobin 11.9 g/dL (12.2-16.2); Lymphocytes # 1.3 K/mm3 (0.7-4.5); Lymphocytes % 8.7 % (10-50); Mean Corpuscular HGB Conc 32.8 g/dL (31.8-35.4); Mean Corpuscular Volume 88.4 fl (81-99); Mean Platelet Volume 7.6 fl (7.4-10.4); Monocytes # 1.2 K/mm3 (0.1-1.0); Neutrophils # 12.1 K/mm3 (1.8-7.8); Neutrophils % 82.7 % (37.0-80.0); Platelet Count 309 K/mm3 (142-424); Red Blood Count 4.11 M/mm3 (4.20-5.40); Red Cell Distribution Width 13.3 % (11.5-17.5); White Blood Count 14.6 K/mm3 (4.8-10.8)
--- NOTE | 2018-08-07 07:29 | PC.NURSE ---
REPORT GIVEN TO Maria Luisa DUNBAR
[2018-08-07 08:00] VITALS: BP 162/77; PULSE 96; RESP 22; TEMP 37.9; O2SAT 93
--- NOTE | 2018-08-07 09:26 | XR_ITS ---
XR chest 2V HISTORY: Pneumonia on left. Fatigue. Weakness. ITS.REASON: pneumonia progress ORDERING PHYSICIAN: Saroj Napier MD PATIENT AGE: 73 years Technique: PA and lateral chest COMPARISON: PA & lateral view chest 12:30 & 08/04/2018 portable chest 6:00 AM FINDINGS: There is been progression of airspace disease most evident at the left lung with now minimal infiltrate at right base. LEFT LUNG. Most prominent new area of density is seen at the left lung base and obscures left hemidiaphragm. (Which was previously sharp and clear) moderately dense infiltrate & atelectasis & consolidation left infrahilar region and extending into the left lower lobe now evident during the left hemidiaphragm. Also progression of small left pleural effusion adding to the density here at left base.-Blunting at left CP angle and posterior sulcus more evident today At left midlung there is hazy infiltrate seen involving segment of left lower lobe. This was evident previous CXR appears stable to slightly more pronounced on today's study on both views. RIGHT LUNG. Minimal streaky infiltrate now evident at right infrahilar region towards RLL and possibly involving RML. . Suspect is a small right pleural effusion as well as slight blunting right CP angle. Cardiomegaly. Mild increased prominence of pulmonary vascularity suggesting mild vascular congestion. Possible minor CHF or fluid overload. Progression of small bilateral pleural effusions withIncreased fluid along fissures bilaterally Nimo and mediastinal structures otherwise appears satisfactory Chest wall and T-spine stable IMPRESSION:...... 1. Progression of airspace disease bilaterally.-With findings most evident at Left Lung. 2. Most notable is new since/progressive infiltrate & atelectasis throughout Left Lower Lobe-most pronounced at left lung base,. Features now obscuring left hemidiaphragm. Small left pleural effusion also contributes to this left basilar density.. The Previously noted infiltrate limited to the superior segment of the LLL is again noted-with only perhaps slight progression since 08/04/2018 3. Right Lung.: Minimal wispy infiltrate right infrahilar region towards right base now also evident 4. Increase prominence of pulmonary vascularity suggesting mild vascular congestion . Question possible mild Fluid overloadvsMinor CHF. Correlation required. Consider BMP ... Slight progression of small pleural effusions bilaterally also noted. Left more than right
--- NOTE | 2018-08-07 09:28 | HMH.ACPN2 ---
Internal Medicine - PN: Subj *Date: 08/07/18 *Time: 09:29 Interval history: Patient reports feeling exhausted this morning. She actually had a good day yesterday afternoon and was sitting up in the chair and felt the best she had felt in the last week. She states about 4:30 in the afternoon her condition abruptly changed and she felt extremely fatigued. She was able to sleep some overnight. Her appetite is improved. She continues to deny significant cough or shortness of breath. What cough she does have has remained nonproductive. She did have a low-grade fever overnight. Exam Vital signs and Labs for Last 24 Hours: Temp Pulse Resp BP Pulse Ox 100.3 F H 96 H 22 162/77 H 93 L 08/07/18 08:00 08/07/18 08:00 08/07/18 08:00 08/07/18 08:00 08/07/18 08:00 Laboratory Results - last 24 hr 08/07/18 06:15: WBC 14.6 H, RBC 4.11 L, Hgb 11.9 L, Hct 36.3 L, MCV 88.4, MCH 29.0, MCHC 32.8, RDW 13.3, Plt Count 309 D, MPV 7.6, Neut % (Auto) 82.7 H, Lymph % (Auto) 8.7 L, [place] % (Auto) 8.0, Eos % (Auto) 0.4, Baso % (Auto) 0.2, Neut # (Auto) 12.1 H, Lymph # (Auto) 1.3, [place] # (Auto) 1.2 H, Eos # (Auto) 0.1, Baso # (Auto) 0.0 I & O for Last 24 hours: Intake & Output 08/04/18 08/05/18 08/06/18 08/07/18 11:59 11:59 11:59 11:59 Intake Total 360 / 360 2600 / 2600 3446 / 3446 1200 / 1200 Output Total 100 / 100 350 / 350 200 / 200 Balance 260 / 260 2250 / 2250 3246 / 3246 1200 / 1200 Weight 202 lb 5 oz 205 lb 202 lb 4 oz 201 lb 7 oz Microbiology Reports for the Last 24 Hours: Microbiology 08/04/18 06:38 Urine,Catheterized Urine Culture - Final NO GROWTH AFTER 48 HOURS 08/04/18 06:25 Blood Blood Culture - Preliminary NO GROWTH AFTER 48 HOURS 08/04/18 06:25 Blood Blood Culture - Preliminary NO GROWTH AFTER 48 HOURS Narrative: She looks depressed this morning. Lung exam reveals crackles in the left base and lower mid lung posteriorly. Right lung is clear. Heart has a regular rate and rhythm Assessment and Plan (1) CAP (community acquired pneumonia) Current visit: Yes Status: Acute Qualifiers: Laterality: left Lung location: lower lobe of lung Qualified Code(s): J18.1 - Lobar pneumonia, unspecified organism Category: Medical Code(s): J18.9 - Pneumonia, unspecified organism Repeat chest x-ray today due to low-grade fever and mild increase in white blood cell count. Patient may require antibiotic adjustment, CT scan of the chest (2) UTI (urinary tract infection) Current visit: Yes Status: Ruled-out Qualifiers: Urinary tract infection type: site unspecified Hematuria presence: without hematuria Qualified Code(s): N39.0 - Urinary tract infection, site not specified Category: Medical Code(s): N39.0 - Urinary tract infection, site not specified (3) A-fib Current visit: Yes Status: Acute Qualifiers: Atrial fibrillation type: chronic Qualified Code(s): I48.2 - Chronic atrial fibrillation Category: Medical Code(s): I48.91 - Unspecified atrial fibrillation Increase extended release diltiazem to 240 mg daily. Repeat INR this morning and daily (4) Elevated INR Current visit: Yes Status: Acute Category: Medical Code(s): R79.1 - Abnormal coagulation profile (5) Obesity (BMI 30-39.9) Current visit: Yes Status: Acute Category: Medical Code(s): E66.9 - Obesity, unspecified
[2018-08-07 10:00] VITALS: TEMP 37.4
[2018-08-07 11:27] LABS: Prothrombin Time 24.9 seconds (9.4-11.8)
--- NOTE | 2018-08-07 13:18 | P.PN_ITS ---
Internal Medicine - PN: Subj *Date: 08/07/18 *Time: 13:17 Exam Vital signs and Labs for Last 24 Hours: Temp Pulse Resp BP Pulse Ox 100.3 F H 96 H 22 162/77 H 93 L 08/07/18 08:00 08/07/18 08:00 08/07/18 08:00 08/07/18 08:00 08/07/18 08:00 Laboratory Results - last 24 hr 08/07/18 06:15: WBC 14.6 H, RBC 4.11 L, Hgb 11.9 L, Hct 36.3 L, MCV 88.4, MCH 29.0, MCHC 32.8, RDW 13.3, Plt Count 309 D, MPV 7.6, Neut % (Auto) 82.7 H, Lymph % (Auto) 8.7 L, [place] % (Auto) 8.0, Eos % (Auto) 0.4, Baso % (Auto) 0.2, Neut # (Auto) 12.1 H, Lymph # (Auto) 1.3, [place] # (Auto) 1.2 H, Eos # (Auto) 0.1, Baso # (Auto) 0.0 08/07/18 10:55: PT 24.9 H, INR 2.50 H I & O for Last 24 hours: Intake & Output 08/04/18 08/05/18 08/06/18 08/07/18 23:59 23:59 23:59 23:59 Intake Total 2106 / 2106 2320 / 2320 2820 / 2820 360 / 360 Output Total 100 / 100 550 / 550 Balance 2005 1770 / 1770 2820 / 2820 360 / 360 Weight 91.767 kg 92.986 kg 91.739 kg 91.371 kg Assessment and Plan (1) CAP (community acquired pneumonia) Current visit: Yes Status: Acute Qualifiers: Laterality: left Lung location: lower lobe of lung Qualified Code(s): J18.1 - Lobar pneumonia, unspecified organism Category: Medical Code(s): J18.9 - Pneumonia, unspecified organism (2) UTI (urinary tract infection) Current visit: Yes Status: Ruled-out Qualifiers: Urinary tract infection type: site unspecified Hematuria presence: without hematuria Qualified Code(s): N39.0 - Urinary tract infection, site not specified Category: Medical Code(s): N39.0 - Urinary tract infection, site not specified (3) A-fib Current visit: Yes Status: Acute Qualifiers: Atrial fibrillation type: chronic Qualified Code(s): I48.2 - Chronic atrial fibrillation Category: Medical Code(s): I48.91 - Unspecified atrial fibrillation (4) Elevated INR Current visit: Yes Status: Acute Category: Medical Code(s): R79.1 - Abnormal coagulation profile (5) Obesity (BMI 30-39.9) Current visit: Yes Status: Acute Category: Medical Code(s): E66.9 - Obesity, unspecified The patient's infection will respond to the chosen ABx?: Yes Is the patient receiving the right drug, dose, and route?: Yes Could a more targeted ABx be ordered?: No
[2018-08-07 14:24] VITALS: TEMP 37.4
[2018-08-07 15:18] VITALS: BP 143/73; PULSE 94; RESP 18; TEMP 37; O2SAT 96
--- NOTE | 2018-08-07 16:34 | PC.NURSE ---
Pt is alert and oriented X4, resp easy and unlabored, lung sounds diminished bilaterally, O2 in place at 2 lpm per nc, O2 sat=96%. Tylenol 650mg po given for low grade temp of 100.3 this am. Pt able to ambulate to bathroom with standby assistance. Family at bedside. Will continue to monitor.
[2018-08-07 20:00] VITALS: BP 152/65; PULSE 90; RESP 20; TEMP 36.8; O2SAT 94
[2018-08-08 04:00] VITALS: BP 148/87; PULSE 83; RESP 20; TEMP 36.8; O2SAT 93
--- NOTE | 2018-08-08 05:21 | PC.NURSE ---
Pt is A&Ox4 and has ambulated to the BR independently and tolerates well. Pt has denied any pain this shift. Pt was found at the beginning of the shift to be off her NC. Pt stated she had not been using it for a little while. Sat's 96% currently and pt denies any SOB or dyspnea. Crackles noted to left lung bases and CTA t/o on right lung. Pulmonary toilet encouraged and pt teaching to notify staff with any SOB, difficulty breathing, or productive cough. Pt does c/o trouble sleeping and medicated per APR. Pt only slept for 1 hr after the Benadryl. Pt slept comfortably after oral phenergan. ABD soft, non-tender and pt report BM today, denies any diarrhea. slight edema noted to BLE, non-pitting, pt encouraged to elevate BLE. VSS, call light within reach, will continue to monitor.
[2018-08-08 06:00] VITALS: BMI 36.9
--- NOTE | 2018-08-08 07:16 | PC.NURSE ---
REPORT GIVEN TO Maria Luisa DUNBAR
--- NOTE | 2018-08-08 07:26 | HMH.ACPN2 ---
Internal Medicine - PN: Subj *Date: 08/08/18 *Time: 07:26 Interval history: Patient reports feeling somewhat better today than yesterday. Her activity tolerance was better over the last 24 hours. She has been weaned from oxygen. She is remained afebrile. However her chest x-ray showed progression in the pneumonia with suspicion of a pleural effusion. Exam Vital signs and Labs for Last 24 Hours: Temp Pulse Resp BP Pulse Ox 98.3 F 83 20 148/87 H 93 L 08/08/18 04:00 08/08/18 04:00 08/08/18 04:00 08/08/18 04:00 08/08/18 04:00 Laboratory Results - last 24 hr 08/07/18 10:55: PT 24.9 H, INR 2.50 H I & O for Last 24 hours: Intake & Output 08/05/18 08/06/18 08/07/18 08/08/18 11:59 11:59 11:59 11:59 Intake Total 2600 / 2600 3446 / 3446 1200 / 1200 240 / 240 Output Total 350 / 350 200 / 200 Balance 2250 / 2250 3246 / 3246 1200 / 1200 240 / 240 Weight 205 lb 202 lb 4 oz 201 lb 7 oz 202 lb 3 oz Narrative: She looks comfortable but breathes heavily. Lungs reveal rales in the left base with diminished breath sounds in the left and right base. Heart has an irregularly irregular rate and rhythm Assessment and Plan (1) CAP (community acquired pneumonia) Current visit: Yes Status: Acute Qualifiers: Laterality: left Lung location: lower lobe of lung Qualified Code(s): J18.1 - Lobar pneumonia, unspecified organism Category: Medical Code(s): J18.9 - Pneumonia, unspecified organism (2) UTI (urinary tract infection) Current visit: Yes Status: Ruled-out Qualifiers: Urinary tract infection type: site unspecified Hematuria presence: without hematuria Qualified Code(s): N39.0 - Urinary tract infection, site not specified Category: Medical Code(s): N39.0 - Urinary tract infection, site not specified (3) A-fib Current visit: Yes Status: Acute Qualifiers: Atrial fibrillation type: chronic Qualified Code(s): I48.2 - Chronic atrial fibrillation Category: Medical Code(s): I48.91 - Unspecified atrial fibrillation (4) Elevated INR Current visit: Yes Status: Acute Category: Medical Code(s): R79.1 - Abnormal coagulation profile (5) Obesity (BMI 30-39.9) Current visit: Yes Status: Acute Category: Medical Code(s): E66.9 - Obesity, unspecified - Assessment and plan all Dx Assessment and Plan for all problems:: I am going to adjust antibiotics due to the progression of pneumonia on the chest x-ray. Clinically the patient is improving. I do have some concerns about the patient's ability to manage at home with her who has dementia and even she states is like taking care of a 3-year-old . She has been encouraged to ambulate more today.
[2018-08-08 07:54] LABS: Basophils % 0.4 % (0.1-2.0); Eosinophils # 0.1 K/mm3 (0.0-0.4); Eosinophils % 1.3 % (0.1-12.0); Hematocrit 34.3 % (37.0-47.0); Hemoglobin 11.2 g/dL (12.2-16.2); Lymphocytes # 1.1 K/mm3 (0.7-4.5); Lymphocytes % 9.9 % (10-50); Mean Corpuscular HGB Conc 32.7 g/dL (31.8-35.4); Mean Corpuscular Hemoglobin 28.4 pg (27.0-31.2); Mean Corpuscular Volume 86.9 fl (81-99); Mean Platelet Volume 7.2 fl (7.4-10.4); Monocytes # 0.8 K/mm3 (0.1-1.0); Neutrophils # 8.9 K/mm3 (1.8-7.8); Neutrophils % 81.4 % (37.0-80.0); Platelet Count 329 K/mm3 (142-424); Red Blood Count 3.95 M/mm3 (4.20-5.40); Red Cell Distribution Width 13.4 % (11.5-17.5); White Blood Count 10.9 K/mm3 (4.8-10.8)
[2018-08-08 08:00] VITALS: BP 170/76; PULSE 100; RESP 20; TEMP 36.8; O2SAT 91
[2018-08-08 09:41] LABS: Prothrombin Time 20.1 seconds (9.4-11.8)
--- NOTE | 2018-08-08 11:17 | HMH.PHACONS ---
- Pharmacy Consult Date: 08/08/18 Time: 11:17 Referring provider: DR. PIERRE Reason for Consult:: VANCOMYCIN DOSING Allergies and ADEs:: Allergies Allergy/AdvReac Type Severity Reaction Status Date / Time Penicillins Allergy Hives Verified 08/04/18 10:07 Sulfa (Sulfonamide Allergy Rash Verified 08/04/18 10:07 Antibiotics) prednisone AdvReac Mild Anxiety Verified 08/04/18 09:59 Home Medications:: Home Medications Medication Instructions Recorded Confirmed Type Amlodipine Besylate/Benazepril 1 each PO DAILY 08/04/18 08/04/18 History [Amlodipine-Benazepril 5-20 mg] Warfarin Sodium [Coumadin] 4 mg PO DAILY 08/04/18 08/04/18 History dilTIAZem HCl [Diltiazem ER] 120 mg PO DAILY 08/04/18 08/04/18 History Height: 1.57 m Weight: 91.711 kg Laboratory Results:: Laboratory Results - last 24 hr 08/07/18 10:55: PT 24.9 H, INR 2.50 H 08/08/18 07:15: WBC 10.9 H D, RBC 3.95 L, Hgb 11.2 L, Hct 34.3 L, MCV 86.9, MCH 28.4, MCHC 32.7, RDW 13.4, Plt Count 329, MPV 7.2 L, Neut % (Auto) 81.4 H, Lymph % (Auto) 9.9 L, [place] % (Auto) 7.0, Eos % (Auto) 1.3, Baso % (Auto) 0.4, Neut # (Auto) 8.9 H, Lymph # (Auto) 1.1, [place] # (Auto) 0.8, Eos # (Auto) 0.1, Baso # (Auto) 0.0 08/08/18 07:15: PT 20.1 H, INR 2.00 H Medical History: Reports:: Atrial Fibrillation, Hypertension, Valvular Heart Disease Denies:: Cancer, Diabetes Mellitus Type 1, Diabetes Mellitus Type 2, Internal Pacemaker Assessment and Plan (1) CAP (community acquired pneumonia) Current visit: Yes Status: Acute Qualifiers: Laterality: left Lung location: lower lobe of lung Qualified Code(s): J18.1 - Lobar pneumonia, unspecified organism Category: Medical Code(s): J18.9 - Pneumonia, unspecified organism (2) UTI (urinary tract infection) Current visit: Yes Status: Ruled-out Qualifiers: Urinary tract infection type: site unspecified Hematuria presence: without hematuria Qualified Code(s): N39.0 - Urinary tract infection, site not specified Category: Medical Code(s): N39.0 - Urinary tract infection, site not specified (3) A-fib Current visit: Yes Status: Acute Qualifiers: Atrial fibrillation type: chronic Qualified Code(s): I48.2 - Chronic atrial fibrillation Category: Medical Code(s): I48.91 - Unspecified atrial fibrillation (4) Elevated INR Current visit: Yes Status: Acute Category: Medical Code(s): R79.1 - Abnormal coagulation profile (5) Obesity (BMI 30-39.9) Current visit: Yes Status: Acute Category: Medical Code(s): E66.9 - Obesity, unspecified - Assessment and plan all Dx Assessment and Plan for all problems:: BASED ON PATIENT'S FACTORS, RECOMMEND STARTING WITH VANCOMYCIN 1500 MG Q24H AT THIS TIME. PHARMACY WILL FOLLOW DAILY AND ADJUST APPROPRIATE. ELENA ALLRED, SUSAND
--- NOTE | 2018-08-08 14:36 | PC.NURSE ---
Patient is unable to provide sputum sample at this time.
[2018-08-08 15:40] VITALS: BP 151/91; PULSE 85; RESP 18; TEMP 37.1; O2SAT 94
--- NOTE | 2018-08-08 17:03 | PC.NURSE ---
Pt is alert and oriented X4, resp easy, lung sounds diminished bilaterally, fine crackles in left base, occasional nonproductive cough, O2 sats mid 90's on RA. Pt up to bathroom per self and sat in chair this afternoon, tolerated well. No complaints of pain. Will continue to monitor.
[2018-08-08 20:00] VITALS: BP 154/83; PULSE 83; RESP 18; RESP 21; TEMP 37.1; O2SAT 94; O2SAT 95
[2018-08-08 21:05] VITALS: O2SAT 94
--- NOTE | 2018-08-09 01:15 | PC.NURSE ---
Pt right & left AC IV lines are leaking and the left is tender and the right has a small amount of blood at the hub site. This RN gathered supplies and was attempting to start a new IV when pt refused that this RN do so prior to any stick. Pt requested another RN attempt the IV. BRITTANY Foster attempted on IV to R wrist, good blood return but unfortunately the site blew before IV ABX could be started. Pt then requested to receive her Benadryl and to be left alone for the remainder of the night in an attempt to sleep. Pt received this med, and pt again stated she did not want to be awakened for any care. MD notified of the above mentioned, no new orders at this time.
--- NOTE | 2018-08-09 05:31 | PC.NURSE ---
Pt is A&Ox4 and has ambulated to the BR with walker and tolerated well. Pt denies any pain. Pt denies any SOA or dyspnea and has continued with room air t/o the previous shift and this shift, most recent sat is 94%. Pt was encouraged and reminded to compete IS & pulmonary toilet qhr, while awake. Pt did not meet goal of 1500, reaching just over 1000 several times. Fine crackles noted to left base, CTA on right with diminished base. edema noted to BLE, non-pitting. VSS, call light within reach. Pt's is at bedside.
[2018-08-09 07:08] LABS: INR 2.21 (0.9-1.1); Prothrombin Time 22.1 seconds (9.4-11.8)
--- NOTE | 2018-08-09 07:11 | HMH.DCSUM ---
General - General Admission date:: 08/04/18 Discharge date: 08/09/18 HPI HPI: 73-year-old female with 48 hours of onset and progression of diffuse weakness culminating this morning and feeling so weak she was unable to bear weight and/or get out of bed which resulted in a call to EMS. Patient was transported to the emergency department and underwent a stroke work-up. Patient did not have any focal neurologic symptoms but just a generalized complaint of weakness which she has attributed to a urinary tract infection despite the lack of urinary symptoms. During evaluation in the emergency department patient had a fever of 102.2. She confirms that over the last 48 hours she has had subjective fevers and chills. Work-up also revealed an abnormal portable chest x-ray with a reading of a left lower lobe infiltrate versus an effusion. Patient also denies any respiratory symptoms of cough, sputum production, shortness of breath, wheezing, orthopnea. White blood cell count was elevated and decision was made to admit the patient for treatment of UTI and pneumonia while awaiting cultures. Of note patient was in my office and saw 1 of the nurse practitioners on August 02 with the same complaint of weakness which she attributed to a UTI due to past history. At that time patient was found to be tachycardic with heart rate in the 120s. She has known atrial fibrillation. Patient was placed on oral Cardizem at that visit. She was scheduled for follow-up today. At that office visit the patient also lacked classical symptoms of urinary tract infection patient was placed on Macrobid which she was unable to take due to profound nausea and occasional vomiting. Hospital Course Hospital Course: Patient was admitted initially for suspected left lung pneumonia with questionable effusion. Shortly after admission repeat PA and lateral chest x-ray with decubitus film was performed which confirmed a left lower lobe pneumonia in the superior segment of the left lower lobe. Patient was continued on Rocephin and azithromycin which over the first 4 days of hospitalization seem to gradually bring the patient's white count down. Fevers resolved within 36 hours of admission. Appropriate cultures were obtained except for sputum culture as patient never had significant cough with sputum production. Even when patient was hypoxic she did not complain of shortness of breath. On fourth day of admission early in the morning patient had low-grade fever and white count bronson slightly raising concern for worsening pneumonia. Repeat PA and lateral chest x-ray was performed which showed an increase in size of the pneumonia on the left and questionable early infiltrate on the right. Antibiotics were adjusted to cefepime, Levaquin, vancomycin. Within 24 hours white count had decreased again and patient was able to be weaned from oxygen. After additional 24 hours of observation on August 08 to August 09 patient was discharged home. She will continue oral antibiotics as an outpatient. Patient will follow-up in my office on August 13 at 10 AM. Objective Vital signs: Temp Pulse Resp BP Pulse Ox 98.7 F 83 21 154/83 H 94 L 08/08/18 20:00 08/08/18 20:00 08/08/18 20:00 08/08/18 20:00 08/08/18 21:05 Narrative: Awake and alert. Oriented x3. Lungs have improved aeration of the left base with faint rales. Heart has an irregular rate and rhythm Results Labs on day of discharge: Labs from last 24 hours 08/08/18 08/08/18 07:15 07:15 WBC 10.9 H D RBC 3.95 L Hgb 11.2 L Hct 34.3 L MCV 86.9 MCH 28.4 MCHC 32.7 RDW 13.4 Plt Count 329 MPV 7.2 L Neut % (Auto) 81.4 H Lymph % (Auto) 9.9 L [place] % (Auto) 7.0 Eos % (Auto) 1.3 Baso % (Auto) 0.4 Neut # (Auto) 8.9 H Lymph # (Auto) 1.1 [place] # (Auto) 0.8 Eos # (Auto) 0.1 Baso # (Auto) 0.0 PT 20.1 H INR 2.00 H DS: Diagnosis - Discharge Diagnosis (1) CAP (
--- NOTE | 2018-08-09 07:14 | P.DS_ITS ---
General - General Admission date:: 08/04/18 Discharge date: 08/09/18 HPI HPI: 73-year-old female with 48 hours of onset and progression of diffuse weakness culminating this morning and feeling so weak she was unable to bear weight and/or get out of bed which resulted in a call to EMS. Patient was transported to the emergency department and underwent a stroke work-up. Patient did not have any focal neurologic symptoms but just a generalized complaint of weakness which she has attributed to a urinary tract infection despite the lack of urinary symptoms. During evaluation in the emergency department patient had a fever of 102.2. She confirms that over the last 48 hours she has had subjective fevers and chills. Work-up also revealed an abnormal portable chest x-ray with a reading of a left lower lobe infiltrate versus an effusion. Patient also denies any respiratory symptoms of cough, sputum production, shortness of breath, wheezing, orthopnea. White blood cell count was elevated and decision was made to admit the patient for treatment of UTI and pneumonia while awaiting cultures. Of note patient was in my office and saw 1 of the nurse practitioners on August 02 with the same complaint of weakness which she attributed to a UTI due to past history. At that time patient was found to be tachycardic with heart rate in the 120s. She has known atrial fibrillation. Patient was placed on oral Cardizem at that visit. She was scheduled for follow-up today. At that office visit the patient also lacked classical symptoms of urinary tract infection patient was placed on Macrobid which she was unable to take due to profound nausea and occasional vomiting. Hospital Course Hospital Course: Patient was admitted initially for suspected left lung pneumonia with questionable effusion. Shortly after admission repeat PA and lateral chest x- ray with decubitus film was performed which confirmed a left lower lobe pneumonia in the superior segment of the left lower lobe. Patient was continued on Rocephin and azithromycin which over the first 4 days of hospitalization seem to gradually bring the patient's white count down. Fevers resolved within 36 hours of admission. Appropriate cultures were obtained except for sputum culture as patient never had significant cough with sputum production. Even when patient was hypoxic she did not complain of shortness of breath. On fourth day of admission early in the morning patient had low-grade fever and white count bronson slightly raising concern for worsening pneumonia. Repeat PA and lateral chest x-ray was performed which showed an increase in size of the pneumonia on the left and questionable early infiltrate on the right. Antibiotics were adjusted to cefepime, Levaquin, vancomycin. Within 24 hours white count had decreased again and patient was able to be weaned from oxygen. After additional 24 hours of observation on August 08 to August 09 patient was discharged home. She will continue oral antibiotics as an outpatient. Patient will follow-up in my office on August 13 at 10 AM. Objective Vital signs: Temp Pulse Resp BP Pulse Ox 98.7 F 83 21 154/83 H 94 L 08/08/18 20:00 08/08/18 20:00 08/08/18 20:00 08/08/18 20:00 08/08/18 21:05 Narrative: Awake and alert. Oriented x3. Lungs have improved aeration of the left base with faint rales. Heart has an irregular rate and rhythm Results Labs on day of discharge: Labs from last 24 hours 08/08/18 08/08/18 07:15 07:15 WBC 10.9 H D
[2018-08-09 07:18] LABS: Basophils # 0.1 K/mm3 (0-0.2); Basophils % 0.5 % (0.1-2.0); Eosinophils # 0.4 K/mm3 (0.0-0.4); Eosinophils % 4.2 % (0.1-12.0); Hematocrit 35.8 % (37.0-47.0); Hemoglobin 11.7 g/dL (12.2-16.2); Lymphocytes # 1.6 K/mm3 (0.7-4.5); Lymphocytes % 18.3 % (10-50); Mean Corpuscular HGB Conc 32.6 g/dL (31.8-35.4); Mean Corpuscular Hemoglobin 28.7 pg (27.0-31.2); Mean Platelet Volume 7.9 fl (7.4-10.4); Monocytes # 1.1 K/mm3 (0.1-1.0); Monocytes % 12.2 % (1.7-9.3); Neutrophils # 5.8 K/mm3 (1.8-7.8); Neutrophils % 64.8 % (37.0-80.0); Platelet Count 351 K/mm3 (142-424); Red Blood Count 4.07 M/mm3 (4.20-5.40); Red Cell Distribution Width 13.5 % (11.5-17.5); White Blood Count 8.9 K/mm3 (4.8-10.8)
--- NOTE | 2018-08-09 07:23 | PC.NURSE ---
REPORT GIVEN TO Yoni ARMSTRONG
[2018-08-09 08:00] VITALS: BP 149/90; PULSE 82; RESP 18; RESP 21; TEMP 36.8; O2SAT 94; O2SAT 95
--- NOTE | 2018-08-09 08:27 | HMH.PHAINT ---
DISCHARGE COUNSELING PROVIDED TO PATIENT FOR ALL MEDICATIONS. PATIENT WANTED TO CLARIFY THAT SHE WAS SUPPOSED TO TAKE BOTH DILTIAZEM AND AMLODIPINE/BENAZEPRIL (YES). PATIENT VERBALIZED UNDERSTANDING AND DID NOT HAVE ANY OTHER QUESTIONS.
--- NOTE | 2018-08-09 09:10 | SW/DCPLANNER ---
I have spoke with Kenney from [facility]. Kenney has stated that all patient information has been received and services will begin this week for this patient. Patient will discharge home today.
== END 2018-08-09 11:21 | disposition home or self-care (01) | DRG 194 ==
LOC: ER 08:34 → 2ND 08:42
PROVIDERS: Admitting Provider Internal Medicine Adolescent Medicine; Emergency Provider Emergency Medicine; Visit Provider Family Medicine
DX: N39.0 Urinary tract infection, site not specified (principal); J18.9 Pneumonia, unspecified organism; I48.2 Chronic atrial fibrillation; R79.1 Abnormal coagulation profile; E66.9 Obesity, unspecified; Z68.37 Body mass index [BMI] 37.0-37.9, adult; I10 Essential (primary) hypertension; Z79.01 Long term (current) use of anticoagulants; Z79.899 Other long term (current) drug therapy; Z88.0 Allergy status to penicillin; Z88.2 Allergy status to sulfonamides; Z88.8 Allergy status to other drugs, medicaments and biological substances
CPT/HCPCS: 36415; 70450; 71035; 71045; 71046; 80048; 81001; 82962; 83605; 84484; 85007; 85025; 85610; 87040; 87086; 93005; 93306; 94760; 94761; 96365; 96366; 96367; 97162; 99285; J0456; J1956; J2405; J3370

== ENCOUNTER 2019-11-23 12:55 | Emergency (ER) | payer MEDICARE, SELFPAY ==
[2019-11-23 12:56] VITALS: BP 166/100; PULSE 66; RESP 16; TEMP 36.9; O2SAT 98; BMI 28.3
[2019-11-23 13:53] VITALS: BP 152/84; PULSE 66; RESP 16; TEMP 36.9; O2SAT 98
--- NOTE | 2019-11-23 13:56 | HMH.EDUTC ---
[place] Disposition Clinical Impression: Otitis media Qualifiers: Otitis media type: unspecified Laterality: right Qualified Code(s): H66.91 - Otitis media, unspecified, right ear Disposition: Home, Self-Care Condition on Discharge: Good Instructions: Middle Ear Infections (Alternative Therapy), Middle Ear Infection, Ofloxacin Otic Additional Instructions: Make sure to keep appointment to get your INR monitored Return if needed Follow up with Family doctor if no improvement or any worsening of symptoms Return if needed Straight to ER if any life threatening symptoms Use drops as prescribed Prescriptions: Ofloxacin [Floxin 0.3% OTIC Solution 5mL] 10 drops EAR-RIGHT BID 14 Days #1 bottle Transmission Status: Pending to [facility] Referrals: Saroj Napier MD [Primary Care Provider] - As needed Time of Disposition: 14:20 Medical Decision Making - Karl Inquiry Pt receiving controlled substance: No Karl was queried for this patient: No Vital Signs: 11/23/19 12:56 11/23/19 13:53 Temperature 98.4 F 98.4 F Temperature Source Oral Pulse Rate 66 Pulse Rate [Right] 66 Respiratory Rate 16 16 Blood Pressure 000/00 L Blood Pressure [Right Arm] 166/100 H Blood Pressure Mean [Right Arm] 122 Blood Pressure Source [Right Arm] Automatic Cuff Blood Pressure Position [Right Arm] Sitting 02 Sat by Pulse Oximetry 98 Oxygen Delivery Method Room Air [place] HPI - General Stated complaint: ear pain Time Seen by Provider: 11/23/19 13:57 Mode of Arrival: Ambulatory Source of Information: Patient Limitations: No Limitations Description of Symptoms (Recalled from Triage Doc. by RN): PT c/o bilateral ear pain HEENT Symptoms (Recalled from RN notes): Yes (ear pain) Resp Symptoms (Recalled from RN notes): No Skin Symptoms (Recalled from RN notes): No MS Symptoms (Recalled from RN notes): No Functional Status (Recalled from RN notes): na - History of Present Illness Provider Complaint: Patient states that she has been having bilateral ear pain for several days and has been using some over the counter ear drops for several days and not helped States that she has pressure like feeling and it feels squishy in there - Related Data Home Medications Medication Instructions Recorded Confirmed Amlodipine Besylate/Benazepril 1 each PO DAILY 08/04/18 08/04/18 [Amlodipine-Benazepril 5-20 mg] Warfarin Sodium [Coumadin] 4 mg PO DAILY 08/04/18 08/04/18 dilTIAZem HCL [Diltiazem 24Hr ER] 120 mg PO DAILY 08/04/18 08/04/18 Previous Rx's Medication Instructions Recorded Cefdinir [Omnicef 300mg Capsule] 300 mg PO BID #8 cap 08/09/18 Ofloxacin [Floxin 0.3% OTIC 10 drops EAR-RIGHT BID 14 Days #1 11/23/19 Solution 5mL] bottle Allergies Allergy/AdvReac Type Severity Reaction Status Date / Time Penicillins Allergy Hives Verified 11/23/19 13:22 Sulfa (Sulfonamide Allergy Rash Verified 11/23/19 13:22 Antibiotics) prednisone AdvReac Mild Anxiety Verified 11/23/19 13:22 - Worker's Comp Is this a Worker's Comp case?: No [facility] History - Hepatitis A Screen Drug use history?: No High risk sexual behaviors?: No History of sexually transmitted infection?: No Currently employed?: No Childcare worker?: No Do you have indoor plumbing?: Yes Do you have electricity?: Yes Attestation statement:: This patient has been screened for Hepatitis A risk factors. Medical History: Reports:: Atrial Fibrillation, Hypertension, Valvular Heart Disease Denies:: Cancer, Diabetes Mellitus Type 1, Diabetes Mellitus Type 2, Internal Pacemaker Laterality Cases: Bilateral: Tonsillectomy Other Surgeries: No: Pacemaker Amputation: No Fractures: No - Social History Alcohol Intake: never Occupational Status: retired Housing: house Household Members: spouse Family Hx:: Cancer, Coronary Artery Disease, Heart Attack, Hypertension ROS Obtained: Yes All systems reviewed & no additional complaints, Yes Systems reviewed a
== END 2019-11-23 15:10 | disposition home or self-care (01) ==
PROVIDERS: Emergency Provider Nurse Practitioner; PCP Family Medicine
DX: H66.91 Otitis media, unspecified, right ear (principal); I48.20 Chronic atrial fibrillation, unspecified; I10 Essential (primary) hypertension; Z79.899 Other long term (current) drug therapy; Z88.0 Allergy status to penicillin; Z88.2 Allergy status to sulfonamides
CPT/HCPCS: 99201

== ENCOUNTER 2022-08-12 08:24 | Day surgery (SDC) | payer MEDICARE, SELFPAY ==
[2022-08-11 10:50] VITALS: BMI 33.8
[2022-08-12 09:21] VITALS: BP 188/83; PULSE 81; RESP 18; TEMP 37.1; O2SAT 99
[2022-08-12 10:41] VITALS: BP 152/61; PULSE 78; RESP 16; O2SAT 96
[2022-08-12 10:46] VITALS: BP 133/71; PULSE 65; RESP 17; O2SAT 96
[2022-08-12 10:51] VITALS: BP 141/63; PULSE 68; RESP 16; O2SAT 96
[2022-08-12 10:57] VITALS: BP 134/97; PULSE 78; RESP 18; TEMP 36.4; O2SAT 98
[2022-08-12 11:07] VITALS: BP 134/97; PULSE 78; RESP 18; TEMP 36.4; O2SAT 98
== END 2022-08-12 11:07 | disposition home or self-care (01) ==
PROVIDERS: PCP Family Medicine; Visit Provider Ophthalmology
DX: H53.149 Visual discomfort, unspecified; H02.835 Dermatochalasis of left lower eyelid; H02.831 Dermatochalasis of right upper eyelid; H25.811 Combined forms of age-related cataract, right eye
CPT/HCPCS: 66984; V2632

== ENCOUNTER 2022-08-26 08:02 | Day surgery (SDC) | payer MEDICARE, SELFPAY ==
[2022-08-21 14:47] VITALS: BMI 33.8
[2022-08-26 08:38] VITALS: BP 177/102; PULSE 80; RESP 18; TEMP 36.8; O2SAT 99
[2022-08-26 10:00] VITALS: BP 127/83; PULSE 82; RESP 18; TEMP 36.2; O2SAT 96
== END 2022-08-26 10:00 | disposition home or self-care (01) ==
PROVIDERS: PCP Family Medicine; Visit Provider Ophthalmology
DX: H25.812 Combined forms of age-related cataract, left eye (principal)
CPT/HCPCS: 66984; V2632

== ENCOUNTER 2023-12-17 10:35 | Outpatient (POV) | payer MEDICARE, SELFPAY | END 2023-12-17 23:59 | disposition home or self-care (01) | LOC: SC 10:36 | PROVIDERS: Visit Provider Specialist/Technologist | DX: Z00.00 Encounter for general adult medical examination without abnormal findings (principal) ==